=== PATIENT | female | born 1980 | race Caucasian/White ===

== ENCOUNTER 2016-08-19 23:54 | Observation (INO) | payer BC, OTHER ==
[~2016-08-19] VITALS: Ht 154.9 cm; Wt 60.4 kg
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
[2016-08-20 00:18] LABS: BASOPHIL # 0.1 K/uL (0.0-0.2); BASOPHIL % 0.3 %; HEMATOCRIT 41.1 % (33.0-46.0); IMMATURE GRANULOCYTE # 0.2 K/uL (0.0-0.3); IMMATURE GRANULOCYTE % 0.9 %; LYMPHOCYTE # 1.7 K/uL (0.8-4.0); LYMPHOCYTE % 7.2 %; MCH 32.3 pg (27.0-34.0); MCHC 34.1 gm/dL (32.0-36.5); MCV 94.7 fl (83.0-98.0); MONOCYTE % 4.2 %; MPV 8.6 fl (9.4-12.4); NEUTROPHIL # (ANC) 20.2 K/uL (1.8-7.8); NEUTROPHIL % 87.4 %; NRBC % 0 /100WBC (0-0.00); PLATELET COUNT 426 K/uL (150-450); RBC 4.34 M/uL (3.50-5.50); RDW-CV 11.6 % (11.9-14.6); WBC 23.1 K/uL (4.0-11.0)
[2016-08-20 00:29] LABS: PROTIME 10.5 SECONDS (9.8-11.4); PTT 24 SECONDS (25-32)
[2016-08-20 00:32] LABS: ALBUMIN 3.7 gm/dL (3.5-5.0); BLOOD UREA NITROGEN 6 mg/dL (6-24); CALCIUM 7.6 mg/dL (8.5-10.5); CHLORIDE 115 mMol/L (96-110); CO2 19 mMol/L (22-32); CREATININE 0.5 mg/dL (0.5-1.1); ESTIMATED GFR (MDRD EQUATION) > 60; PHOSPHORUS 3.5 mg/dL (2.5-4.9); POTASSIUM 3.7 mMol/L (3.7-5.1)
[2016-08-20 00:34] LABS: ANION GAP 16.7 (10.0-19.0); SODIUM 147 mMol/L (135-145)
[2016-08-20 04:11] LABS: BASOPHIL % 0.2 %; HEMATOCRIT 39.5 % (33.0-46.0); HEMOGLOBIN 13.2 g/dL (11.0-15.0); IMMATURE GRANULOCYTE # 0.1 K/uL (0.0-0.3); IMMATURE GRANULOCYTE % 0.6 %; LYMPHOCYTE # 1.2 K/uL (0.8-4.0); LYMPHOCYTE % 7.5 %; MCH 31.9 pg (27.0-34.0); MCHC 33.4 gm/dL (32.0-36.5); MCV 95.4 fl (83.0-98.0); MONOCYTE # 0.9 K/uL (0.0-1.0); MONOCYTE % 5.4 %; MPV 8.8 fl (9.4-12.4); NEUTROPHIL # (ANC) 13.6 K/uL (1.8-7.8); NEUTROPHIL % 86.3 %; NRBC % 0 /100WBC (0-0.00); PLATELET COUNT 342 K/uL (150-450); RBC 4.14 M/uL (3.50-5.50); RDW-CV 11.7 % (11.9-14.6); WBC 15.7 K/uL (4.0-11.0)
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
[2016-08-20 04:29] LABS: ALBUMIN 3.7 gm/dL (3.5-5.0); ALK PHOS 40 IU/L (33-138); ALT 34 IU/L (12-78); ANION GAP 15.9 (10.0-19.0); AST 41 IU/L (10-40); BLOOD UREA NITROGEN 7 mg/dL (6-24); CHLORIDE 114 mMol/L (96-110); CO2 19 mMol/L (22-32); CREATININE 0.6 mg/dL (0.5-1.1); ESTIMATED GFR (MDRD EQUATION) > 60; POTASSIUM 3.9 mMol/L (3.7-5.1); SODIUM 145 mMol/L (135-145); TOTAL BILIRUBIN 0.2 mg/dL (0.0-1.5); TOTAL PROTEIN 6.2 g/dL (6.0-8.4)
[2016-08-20 04:31] LABS: CALCIUM 7.3 mg/dL (8.5-10.5)
--- NOTE | 2016-08-20 04:53 | NUR ---
Significant Event:Patient alert and ox3. Moves all extrmeties. States no numb/tingling. Can be up as tolerated, but has not gotten up this shift. C/o headache with morphine given x1 at 0333, did state it helped. Nausea off and on this shift, recieved Zofran in ERx2. Clear liquids diet. PIV x2 to bilateral antecubitals with IVF LR to rt antecubital. Rt eye/face is edematous. Very difficult for her to open her right eye at all. Attmepted several times, was able to get it open x1 briefly and stated did have some vision, but was blurry. Has had sanguineous fluid dripping scant amount from her nose. She also has had some leaking around her laceration near her rt eye. Follow up:Pain control. Nixon Alvarado and Briana to see.
[2016-08-20] MEDS ORDERED: EFFEXOR XR150 MG PO (10:17)
[2016-08-20] MEDS ORDERED: TYLENOL EXTRA500 MG PO (10:18)
[2016-08-20] MEDS ORDERED: ELAVIL25 MG PO (10:18)
[2016-08-20] MEDS ORDERED: BUSPIRONE HCL15 MG PO (10:19)
--- NOTE | 2016-08-20 12:33 | NUR ---
Introduced self and role of care management to patient and . They live in [place] with their children. She states that she is able to do all her own ADL's. Her will be available to assist as needed. She is not intrested in any type of Alcohol treatment options. She plans on returning home on discharge. She denies any needs at this time. Will continue to follow.
--- NOTE | 2016-08-20 17:07 | NUR ---
Significant Event: Alert & oriented. VSS, afebrile, room air. Up with 1 assist, pain to L) leg. Voiding ok. Refused breakfast, a few bites for lunch. Complaint of nausea and no appetite. [place] last given 1605, ice applied to face and L)calf. Follow up: Avoid Morphine for pain control. Encourage ambulation. Home AM. Plan to see Dr. Alvarado outpatient Thursday.
--- NOTE | 2016-08-21 04:36 | NUR ---
Significant Event: The patient is Alert and Oriented x3. Numbness to the Right side of her face from swelling. Moves all extremities spontaneously and to command. Left leg weaker from pain. Gave Barnard last at 0231 for a headache and facial pain. VSS. On room air. Bruising to bilateral legs. Bruising swelling, and Lacerations to face. Right eye is red and has discharge from it. PIV to the Right AC infusing LR at 125ml/hr. PIV to the Left AC saline locked. Up with 1 assist, gaitbelt. Follow up: Home today
[2016-08-21] MEDS ORDERED: NORCO 5-325 TA1 EACH PO (10:48)
[2016-08-21] MEDS ORDERED: ZOFRAN4 MG PO (10:48)
[2016-08-25] MEDS ORDERED: MOTRIN800 MG PO (15:07)
[2016-08-28] MEDS ORDERED: PERCOCET 5-3251 EACH PO (11:06)
[2016-08-28] MEDS ORDERED: BACITRACIN OPH3.5 GM OPHTH (11:06)
[2016-08-28] MEDS ORDERED: KEFLEX500 MG PO (11:09)
[2016-08-28] MEDS ORDERED: KEFLEX250 MG PO (11:09)
[2016-08-28] MEDS ORDERED: MEDROL4 MG PO (11:10)
== END 2016-08-21 12:21 | disposition disaster alternative care site (69) ==
LOC: GACC 23:54 → GNTU 08-20 01:49
PROVIDERS: Family Medicine; ADMIT Surgery
DX: S02.31XA Fracture of orbital floor, right side, initial encounter for closed fracture (principal); S06.6X9A Traumatic subarachnoid hemorrhage with loss of consciousness of unspecified duration, initial encounter; S00.83XA Contusion of other part of head, initial encounter; S01.511A Laceration without foreign body of lip, initial encounter; S01.81XA Laceration without foreign body of other part of head, initial encounter; S05.31XA Ocular laceration without prolapse or loss of intraocular tissue, right eye, initial encounter; F10.129 Alcohol abuse with intoxication, unspecified; F32.9 Major depressive disorder, single episode, unspecified; V49.9XXA Car occupant (driver) (passenger) injured in unspecified traffic accident, initial encounter
CPT/HCPCS: G0378; G0480; J2270; J2405; J7120; Q9967

== ENCOUNTER → 2016-08-19 | Outpatient (CLI) | payer BC, OTHER ==
[~2016-08-19] MED LIST: BACITRACIN OPH3.5 GM OPHTH; BUSPIRONE HCL15 MG PO; EFFEXOR XR150 MG PO; ELAVIL25 MG PO; KEFLEX250 MG PO; KEFLEX500 MG PO; MEDROL4 MG PO; MOTRIN800 MG PO; NORCO 5-325 TA1 EACH PO; PERCOCET 5-3251 EACH PO; TYLENOL EXTRA500 MG PO; ZOFRAN4 MG PO
== END | disposition disaster alternative care site (69) ==
LOC: GAIR 23:30
DX: M25.551 Pain in right hip (principal); M79.641 Pain in right hand; S06.6X0A Traumatic subarachnoid hemorrhage without loss of consciousness, initial encounter; S05.31XA Ocular laceration without prolapse or loss of intraocular tissue, right eye, initial encounter; S02.81XA Fracture of other specified skull and facial bones, right side, initial encounter for closed fracture; M79.89 Other specified soft tissue disorders; V49.9XXA Car occupant (driver) (passenger) injured in unspecified traffic accident, initial encounter
CPT/HCPCS: A0422; A0431; A0436; J3010

== ENCOUNTER → 2016-08-28 | Day surgery (SDC) | payer BC, OTHER ==
[~2016-08-28] VITALS: Ht 154.9 cm; Wt 59.5 kg
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
== END | disposition disaster alternative care site (69) ==
LOC: GSDC 05:59
PROC: 0NSP0ZZ Reposition Right Orbit, Open Approach (ICD-10-PCS; principal; 2016-08-28)
DX: S02.31XA Fracture of orbital floor, right side, initial encounter for closed fracture (principal); F32.9 Major depressive disorder, single episode, unspecified; F17.200 Nicotine dependence, unspecified, uncomplicated; V89.2XXA Person injured in unspecified motor-vehicle accident, traffic, initial encounter
CPT/HCPCS: C1713; J0131; J0690; J1100; J2250; J2405; J3010; J7120